=== PATIENT | female | born 1970 | race Two or more races ===

== ENCOUNTER 2019-04-04 12:18 | Emergency (ER) | payer SELFPAY ==
[~2019-04-04] VITALS: Ht 160 cm; Wt 77.1 kg
[2019-04-04 12:32] VITALS: BP 140/95
[2019-04-04] MEDS ORDERED: IBUPROFEN 400 MG TABLET ONE (13:22)
[2019-04-04] MEDS: IBUPROFEN 400 MG TABLET PO ONE (13:24)
--- NOTE | 2019-04-04 14:03 | NUR ---
SHORT BOOT APPLIED ON LEFT LOWER EXTREMITY. Patient discharged to home in stable condition. Written and verbal after care instructions given. Patient verbalizes understanding of instruction.
== END 2019-04-04 14:04 | disposition home or self-care (01) ==
LOC: ER 12:18
DX: S93.492A Sprain of other ligament of left ankle, initial encounter (principal); X50.1XXA Overexertion from prolonged static or awkward postures, initial encounter; Y93.89 Activity, other specified; Y92.89 Other specified places as the place of occurrence of the external cause; Y99.8 Other external cause status
CPT/HCPCS: 73610-TC; 73630-TC